=== PATIENT | female | born 1975 | race Caucasian/White ===

== ENCOUNTER 2024-04-08 17:08 | Inpatient (IN) | payer OTHER ==
[~2024-04-08] VITALS: Ht 160 cm; Wt 81.7 kg
[2024-04-08 17:40] VITALS: BP_SYST 127; PULSE 90; RESP 16; TEMP 98.3; O2SAT 99
[2024-04-08 17:50] LABS: BASOPHILS # (AUTO) 0.1 K/uL (0.0-0.2); BASOPHILS % (AUTO) 1.3 % (0.0-2.0); EOSINOPHILS % (AUTO) 0.6 % (0.0-4.0); HEMATOCRIT 36.7 % (36-48); HEMOGLOBIN 12.8 g/dL (12.0-16.0); LYMPHOCYTES # (AUTO) 1.4 K/uL (1.0-5.5); LYMPHOCYTES % (AUTO) 17.1 % (20.5-51.5); MEAN CORPUSCULAR HEMOGLOBIN 31 pg (27-31); MEAN CORPUSCULAR HGB CONC 35 % (32-36); MEAN CORPUSCULAR VOLUME 89 fL (79.0-98.0); MONOCYTES # (AUTO) 0.5 K/uL (0.0-1.0); MONOCYTES % (AUTO) 5.8 % (1.7-9.3); NEUTROPHILS # (AUTO) 6.1 K/uL (1.8-7.7); NEUTROPHILS % (AUTO) 75.2 % (40.0-70.0); PLATELET COUNT (AUTO) 357 K/uL (130-430); RED BLOOD CELL COUNT(AUTO) 4.14 MIL/uL (4.2-6.2); RED CELL DISTRIBUTION WIDTH 12.6 % (9.0-15.0)
[2024-04-08 18:03] LABS: ALANINE AMINOTRANSFERASE 22 U/L (12-78); ALBUMIN 4.1 g/dL (3.4-4.8); ANION GAP 8 (5-15); ASPARTATE AMINOTRANSFERASE 16 U/L (10-37); CARBON DIOXIDE 26 mmol/L (23-29); CHLORIDE 105 mmol/L (98-107); CREATININE 1.02 mg/dL (0.55-1.30); GFR AFRICAN AMERICAN 75 mL/min (>90); GLUCOSE 92 mg/dL (74-106); POTASSIUM 4.1 mmol/L (3.5-5.1); SODIUM SERUM 139 mmol/L (136-145); TOTAL BILIRUBIN 0.5 mg/dL (0.0-1.0); TOTAL PROTEIN, SERUM 8.2 g/dL (6.4-8.3); UREA NITROGEN, BLOOD 16 mg/dL (8-21)
[2024-04-08 18:04] LABS: BILIRUBIN,DIRECT 0.1 mg/dL (0.0-0.3)
[2024-04-08 18:07] LABS: GFR NON AFRICAN-AMERICAN 62 mL/min (>90)
[2024-04-08] MEDS: LORazepam 1 MG TABLET PO ONE (19:45)
[2024-04-08] MEDS: ASPIRIN 325 MG TABLET PO ONE (20:05)
[2024-04-08] MEDS ORDERED: LOSA-413 PO (20:41)
[2024-04-08] MEDS ORDERED: CARV12.548 PO (20:41)
[2024-04-08] MEDS ORDERED: UPAD15TA PO (20:41)
[2024-04-08] MEDS ORDERED: HYDR200T38 PO (20:41)
[2024-04-08] MEDS ORDERED: ROSU20TA73 PO (20:41)
[2024-04-08 21:49] VITALS: BP_SYST 129; PULSE 94; RESP 20; TEMP 97.2; O2SAT 100
[2024-04-08] MEDS ORDERED: NALOXONE HCL 0.4 MG/ML AMP (NARCAN) IVP PRN ×2 (23:00)
[2024-04-09 02:11] VITALS: BP_SYST 131; PULSE 90; RESP 18; TEMP 97.2; O2SAT 100
[2024-04-09] MEDS: NORMAL SALINE 5 ML DISP.SYRIN IVF SCH (05:01)
[2024-04-09 05:11] LABS: BASOPHILS % (AUTO) 0.4 % (0.0-2.0); EOSINOPHILS % (AUTO) 0.7 % (0.0-4.0); HEMOGLOBIN 12.7 g/dL (12.0-16.0); LYMPHOCYTES # (AUTO) 2.3 K/uL (1.0-5.5); MEAN CORPUSCULAR HEMOGLOBIN 31 pg (27-31); MEAN CORPUSCULAR HGB CONC 35 % (32-36); MEAN CORPUSCULAR VOLUME 89 fL (79.0-98.0); MONOCYTES # (AUTO) 0.6 K/uL (0.0-1.0); MONOCYTES % (AUTO) 9.7 % (1.7-9.3); NEUTROPHILS # (AUTO) 3.6 K/uL (1.8-7.7); NEUTROPHILS % (AUTO) 54.2 % (40.0-70.0); PLATELET COUNT (AUTO) 338 K/uL (130-430); RED BLOOD CELL COUNT(AUTO) 4.06 MIL/uL (4.2-6.2); RED CELL DISTRIBUTION WIDTH 12.6 % (9.0-15.0); WHITE BLOOD COUNT (AUTO) 6.7 K/uL (4.8-10.8)
[2024-04-09 05:28] LABS: CREATININE 0.95 mg/dL (0.55-1.30); POTASSIUM 4.2 mmol/L (3.5-5.1)
[2024-04-09 08:00] VITALS: BP_SYST 121; PULSE 68; RESP 18; TEMP 97.8; O2SAT 95
[2024-04-09] MEDS: ACETAMINOPHEN 325 MG TABLET PO PRN (08:55)
[2024-04-09] MEDS: LOSARTAN POTASSIUM 50 MG TABLET (COZAAR) PO SCH (08:56)
[2024-04-09] MEDS: CARVEDILOL 12.5 MG TABLET (COREG) PO SCH (08:57)
[2024-04-09] MEDS: HYDROXYCHLOROQUINE SULFATE 200 MG TABLET PO SCH (08:57)
[2024-04-09 09:11] VITALS: O2SAT 95
[2024-04-09 12:00] VITALS: BP_SYST 115; PULSE 82; RESP 16; TEMP 98.1; O2SAT 98
[2024-04-09 16:00] VITALS: BP_SYST 113; PULSE 72; RESP 16; TEMP 97.7; O2SAT 97
[2024-04-09] MEDS: HYDROcodone/ACETAMIN 5-325 MG TAB (NORCO/ VICODIN) PO PRN (18:11)
[2024-04-09 20:00] VITALS: BP_SYST 107; PULSE 80; RESP 18; TEMP 97.5; O2SAT 98
[2024-04-09] MEDS: ATORVASTATIN 20 MG TABLET PO SCH (21:59)
[2024-04-09] MEDS: ONDANSETRON HCL 4 MG/2 ML VIAL IVP PRN (22:22)
[2024-04-10 00:11] VITALS: BP_SYST 112; PULSE 85; RESP 18; TEMP 97.1
[2024-04-10 07:06] LABS: BASOPHILS % (AUTO) 0.4 % (0.0-2.0); EOSINOPHILS # (AUTO) 0.1 K/uL (0.0-0.4); EOSINOPHILS % (AUTO) 1.1 % (0.0-4.0); HEMATOCRIT 37.9 % (36-48); HEMOGLOBIN 13.2 g/dL (12.0-16.0); LYMPHOCYTES % (AUTO) 23.5 % (20.5-51.5); MEAN CORPUSCULAR HEMOGLOBIN 32 pg (27-31); MEAN CORPUSCULAR HGB CONC 35 % (32-36); MEAN CORPUSCULAR VOLUME 90 fL (79.0-98.0); MONOCYTES # (AUTO) 0.9 K/uL (0.0-1.0); MONOCYTES % (AUTO) 10.7 % (1.7-9.3); NEUTROPHILS # (AUTO) 5.6 K/uL (1.8-7.7); NEUTROPHILS % (AUTO) 64.3 % (40.0-70.0); PLATELET COUNT (AUTO) 354 K/uL (130-430); RED CELL DISTRIBUTION WIDTH 12.7 % (9.0-15.0); WHITE BLOOD COUNT (AUTO) 8.7 K/uL (4.8-10.8)
[2024-04-10 07:39] LABS: ALBUMIN 3.9 g/dL (3.4-4.8); CALCIUM 9.2 mg/dL (8.4-11.0); CREATININE 1.01 mg/dL (0.55-1.30); POTASSIUM 4.2 mmol/L (3.5-5.1); TOTAL BILIRUBIN 0.6 mg/dL (0.0-1.0)
[2024-04-10 08:03] VITALS: BP_SYST 109; PULSE 81; RESP 16; O2SAT 100
[2024-04-10 11:23] VITALS: BP_SYST 110; PULSE 85; RESP 17; TEMP 97.7; O2SAT 99
[2024-04-10 15:11] VITALS: BP_SYST 128; PULSE 92; TEMP 98.2; O2SAT 100
[2024-04-10] MEDS: LORazepam 2 MG/ML VIAL IVP PRN (15:23)
[2024-04-10] MEDS: HYDROcodone/ACETAMIN 10-325 MG TAB PO PRN (15:31)
[2024-04-10 20:00] VITALS: BP_SYST 114; PULSE 93; RESP 18; TEMP 97.7; O2SAT 100
[2024-04-11] VITALS: BP_SYST 108; PULSE 93; RESP 18; TEMP 97.6; O2SAT 99
[2024-04-11 05:39] LABS: BASOPHILS % (AUTO) 0.2 % (0.0-2.0); EOSINOPHILS # (AUTO) 0.1 K/uL (0.0-0.4); EOSINOPHILS % (AUTO) 1.2 % (0.0-4.0); HEMATOCRIT 34.9 % (36-48); HEMOGLOBIN 12.2 g/dL (12.0-16.0); LYMPHOCYTES # (AUTO) 1.3 K/uL (1.0-5.5); LYMPHOCYTES % (AUTO) 18.1 % (20.5-51.5); MEAN CORPUSCULAR HEMOGLOBIN 32 pg (27-31); MEAN CORPUSCULAR HGB CONC 35 % (32-36); MEAN CORPUSCULAR VOLUME 90 fL (79.0-98.0); MONOCYTES # (AUTO) 0.8 K/uL (0.0-1.0); MONOCYTES % (AUTO) 10.4 % (1.7-9.3); NEUTROPHILS # (AUTO) 5.2 K/uL (1.8-7.7); NEUTROPHILS % (AUTO) 70.1 % (40.0-70.0); PLATELET COUNT (AUTO) 307 K/uL (130-430); RED BLOOD CELL COUNT(AUTO) 3.88 MIL/uL (4.2-6.2); RED CELL DISTRIBUTION WIDTH 12.6 % (9.0-15.0); WHITE BLOOD COUNT (AUTO) 7.3 K/uL (4.8-10.8)
[2024-04-11 06:09] LABS: CALCIUM 8.9 mg/dL (8.4-11.0); CREATININE 0.93 mg/dL (0.55-1.30); POTASSIUM 4.3 mmol/L (3.5-5.1)
[2024-04-11 07:50] VITALS: BP_SYST 100; PULSE 88; RESP 16; TEMP 98.1; O2SAT 98
[2024-04-11 09:50] VITALS: O2SAT 98
[2024-04-11 12:09] VITALS: BP_SYST 102; PULSE 81; RESP 16; TEMP 97.1; O2SAT 94
[2024-04-11 15:26] VITALS: BP_SYST 101; PULSE 83; RESP 16; TEMP 97.8; O2SAT 96
== END 2024-04-11 16:40 | disposition home health service (06) | DRG 206 ==
LOC: SED 17:08 → STU 20:17
PROVIDERS: ADMIT Preventive Medicine Preventive Medicine/Occupational Environmental Medicine; ATTEND Preventive Medicine Preventive Medicine/Occupational Environmental Medicine
DX: M94.0 Chondrocostal junction syndrome [Tietze] (principal); R65.10 Systemic inflammatory response syndrome (SIRS) of non-infectious origin without acute organ dysfunction; R20.0 Anesthesia of skin; E78.5 Hyperlipidemia, unspecified; I10 Essential (primary) hypertension; I25.10 Atherosclerotic heart disease of native coronary artery without angina pectoris; Z98.61 Coronary angioplasty status; Z88.8 Allergy status to other drugs, medicaments and biological substances; Z91.040 Latex allergy status; Z79.899 Other long term (current) drug therapy; R53.1 Weakness; R73.9 Hyperglycemia, unspecified
CPT/HCPCS: 36415; 70450-TC; 70551; 71045; 80048; 80053; 80076; 82948; 83735; 84484; 85025; 85379; 93005; 93306; 93880; 97110-GP; 97116-GP; 97530-GP; 99285; G0378; J2060; J2405